=== PATIENT | female | born 1970 | race Caucasian/White ===

== ENCOUNTER 2020-09-17 20:52 | Outpatient (CLI) | payer OTHER, SELFPAY ==
[2020-09-19 19:35] LABS: HPV High Risk Type 16 Negative (Negative); HPV High Risk Type 18 Negative (Negative)
[2020-09-22 16:47] LABS: HPV Other High Risk Types Negative (Negative)
== END 2020-09-17 20:53 | disposition home or self-care (01) ==
LOC: LAB 20:52
PROVIDERS: ATTEND Family Medicine
DX: Z12.4 Encounter for screening for malignant neoplasm of cervix (principal)
CPT/HCPCS: 87624; 88142; G0123